=== PATIENT | female | born 1940 | race Hispanic/Latino ===

== ENCOUNTER 2018-12-16 12:45 | Observation (INO) | payer MEDICARE ==
[~2018-12-16] VITALS: Ht 154.9 cm; Wt 66.2 kg
[~2018-12-16 12:45] MED LIST: AMLODIPINE-BEN1 EAC3 PO; COUMADIN5 MG PO; WARFARIN SODIU2.5 MG PO
[2018-12-16] MEDS ORDERED: SODIUM CHLORIDE 0.9% 1000ML 1,000 ML IV STA (13:01)
[2018-12-16] MEDS ORDERED: ONDANSETRON HCL INJ 2MG/ML 2ML 2 MG/ML VIAL IV NR (13:30)
[2018-12-16 13:42] LABS: BILIRUBIN,URINE NEGATIVE (NEGATIVE); CLARITY,URINE CLEAR (CLEAR); COLOR,URINE YELLOW (YELLOW); KETONES,URINE TRACE (NEGATIVE); LEUKOCYTE ESTERASE ,URINE NEGATIVE (NEGATIVE); NITRITE,URINE NEGATIVE (NEGATIVE); PROTEIN,URINE DIPSTICK TRACE (NEGATIVE); URINE UROBILINOGEN 0.2 mg/dL (0.2 - 1)
[2018-12-16 13:58] LABS: BACTERIA,URINE FEW /HPF; EPITHELIAL CELLS,URINE FEW /LPF; RBC,URINE 0-5 /HPF (0-5); WBC,URINE (MAN) 0-5 /HPF (0-5)
--- NOTE | 2018-12-16 14:06 | NUR ---
MEDS GIVEN PER 'S ORDERS. FAMILY AT BEDSIDE
[2018-12-16 14:18] LABS: BASOPHILS # (AUTO) 0.1 (0.0-0.1); BASOPHILS % 0.4 % (0.0-1.0); EOSINOPHILS % 0.1 % (0.0-6.0); HEMATOCRIT 39.4 % (34.2-44.1); HEMOGLOBIN 12.8 g/dL (12.0-16.0); LYMPHOCYTES # (AUTO) 1.5 (1.0-3.2); LYMPHOCYTES % 11.1 % (18.0-39.1); MEAN CORPUSCULAR HEMOGLOBIN 25.7 pg (28-32); MEAN CORPUSCULAR HGB CONC 32.5 g/dL (31-35); MEAN CORPUSCULAR VOLUME 79.1 fL (81-99); MONOCYTES # (AUTO) 1.2 (0.2-0.8); MONOCYTES % 8.8 % (4.4-11.3); NEUTROPHILS # (AUTO) 10.9 (2.1-6.9); PLATELET COUNT 430 x10e3/uL (140-360); RED BLOOD COUNT 4.98 x10e6/uL (3.6-5.1)
[2018-12-16 14:35] LABS: INR 0.96; PROTHROMBIN TIME 13.3 seconds (11.9-14.5)
[2018-12-16 14:36] LABS: PARTIAL THROMBOPLASTIN TIME 29.4 seconds (23.8-35.5)
[2018-12-16 14:43] LABS: ALANINE AMINOTRANSFERASE 12 IU/L (0-55); ALBUMIN 4.1 g/dL (3.5-5.0); ALBUMIN/GLOBULIN RATIO 1.1 (0.8-2.0); ALKALINE PHOSPHATASE 77 IU/L (40-150); ANION GAP 16.5 mmol/L (8-16); BLOOD UREA NITROGEN 13 mg/dL (7-26); BUN/CREATININE RATIO 17 (6-25); CALCIUM 10.2 mg/dL (8.4-10.2); CARBON DIOXIDE 21 mmol/L (22-29); CHLORIDE 105 mmol/L (98-107); CREATINE KINASE 36 IU/L (29-168); CREATININE, SERUM 0.75 mg/dL (0.57-1.11); EST GLOMERULAR FILTRATION RATE > 60 ML/MIN (60-); GLUCOSE 139 mg/dL (74-118); POTASSIUM 3.5 mmol/L (3.5-5.1); SODIUM 139 mmol/L (136-145)
--- NOTE | 2018-12-16 15:00 | Diagnostic Imaging Report ---
EXAM: Abdomen 4 radiographs INDICATION: ^[id number] ^[id number] COMPARISON: None FINDINGS: No lung consolidation. No pleural effusion or pneumothorax. Biapical scarring, right greater than left. 1.2 cm nodular density in the left mid to inferior lung zone. Nonobstructive bowel gas pattern. No signs of pneumoperitoneum. Stool throughout the colon, could represent constipation. No acute osseous abnormality. Pelvic phleboliths. IMPRESSION: 1. Nonobstructive bowel gas pattern. 2. Left mid to lower lung field 1.2 cm nodular density. Recommend correlation with nonurgent chest CT. Signed by: Dr. Lenard Genao MD on 12/16/2018 2:56 PM
[2018-12-16] MEDS ORDERED: SODIUM CHLORIDE 0.9% 1000ML 1,000 ML IV SCH (16:41)
[2018-12-16] MEDS ORDERED: ASPIRIN 81 MG CHEW TAB PO ONE (16:45)
[2018-12-16] MEDS ORDERED: ONDANSETRON HCL INJ 2MG/ML 2ML 2 MG/ML VIAL IV PRN (16:45)
--- OUTSIDE RECORDS SUMMARY | 2018-12-16 16:55 | XMS REPORT ---
Author [facility] Address Unknown Phone Unavailable Care Team Providers Care Exhauster Name Role Phone SUZI MARSHALL Unavailable Unavailable Problems This patient has no known problems. Allergies, Adverse Reactions, Alerts This patient has no known allergies or adverse reactions. Medications This patient has no known medications. Results Test Description Test Time Test Comments Text Results Atomic Results Result Comments ABDOMEN ACUTE SERIES W/PA CXR 2018-12-16 14:54:00 [place] [address] Patient Name: LIZET NAIDU MR #: [id number] : 1940 Age/Sex: 78/F Req #: [id number] Adm Physician: Ordered by: SUZI MARSHALL MD Report #: [id number] Location: ER Room/Bed: Procedure: [id number] DX/ABDOMEN ACUTE SERIES W/PA CXR Exam Date: 12/16/18 Exam Time: 1322 REPORT STATUS: Signed EXAM: Abdomen 4 radiographs INDICATION: [id number] COMPARISON: None FINDINGS: No lung consolidation. No pleural effusion or pneumothorax. Biapical scarring, right greater than left. 1.2 cm nodular density in the left mid to inferior lung zone. Nonobstructive bowel gas pattern. No signs of pneumoperitoneum. Stool throughout the colon, could represent constipation. No acute osseous abnormality. Pelvic phleboliths. IMPRESSION: 1. Nonobstructive bowel gas pattern. 2. Left mid to lower lung field 1.2 cm nodular density. Recommend correlation with nonurgent chest CT. Signed by: Dr. Lenard Genao MD on 12/16/2018 2:56 PM Dictated By: LENARD GENAO MD [id number] Transcribed By: JEFE on 12/16/181455 COPY TO: SUZI MARSHALL MD
--- NOTE | 2018-12-16 17:18 | NUR ---
report called to leona for this patient to go to rm 113
--- NOTE | 2018-12-16 17:55 | NUR ---
RECEIVED PATIENT FROM ER. PATIENT A/O X3, EVEN RESPIRATIONS ON RA. BOWEL SOUNDS ACTIVE, SKIN INTACT, NO EDEMA. RIGHT AC 20 GAUGE IV SL. IV INTACT AND PATENT. NO PAIN OR DISCOMFORT AT THIS TIME. TELEMETRY # 30 ST 104. PATIENT AMBULATES WITH ASSISTANCE. VITAL SIGNS STABLE. FAMILY AT BEDSIDE. NO SIGNS OF DISTRESS. BED LOW, WHEELS LOCKED, SIDE RAILS X2. CALL LIGHT IN REACH WILL CONTINUE TO MONITOR PATIENT.
--- NOTE | 2018-12-16 18:00 | NUR ---
just before moving pt to rm 113.; melissa showed up insisting upon speaking with the ER physician dr. felder. fernando had already been updated re pending admit/p.o.c. attempted to move pt from room and melissa stopped the stretcher and would not let the pt. be moved 'til speaking with the
--- NOTE | 2018-12-16 18:10 | NUR ---
JUST BEFORE MOVING THE PT TO RM 113; THE GRAND-SON INSISTED UPON SPEAKING WITH THE ER PHYSICIAN P THE FAMILY HAD ALREADY BEEN UPDATED ON PENDING ADMIT AND P.O.C. THIS DELAYED MOVING THE PATEINT
[2018-12-16 18:20] VITALS: BP 144/69
[2018-12-16 18:27] VITALS: BP 144/69
[2018-12-16 18:31] VITALS: BP 144/69
--- NOTE | 2018-12-16 19:15 | NUR ---
Report taken from morning rn.pt is lyeing in the bed.family member at bed side.
--- NOTE | 2018-12-16 19:30 | NUR ---
Received CT brain report.notified to and .received verbal order to transfer the pt to [facility].informed to family member.keep monitor the pt.
--- NOTE | 2018-12-16 19:31 | Diagnostic Imaging Report ---
Exam: Head CT without contrast History: Hydration, dizziness Comparison studies: None Technique: Axial images were obtained from the skull base to the vertex. Coronal and sagittal images reconstructed from the axial data. Dose modulation, iterative reconstruction, and/or weight based adjustment of the mA/kV was utilized to reduce the radiation dose to as low as reasonably achievable. Radiation dose: Total DLP: 921 mGy*cm. Estimated effective dose: DLP x 0.015 Intravenous contrast: None Findings: Scalp: No abnormalities. Bones: No fractures, blastic or lytic lesions. Brain sulci: Mildly prominent. Ventricles: Normal in size and configuration. No hydrocephalus. Extra-axial spaces: Subtle increased hyperdensity along the right sylvian fissure compatible with small subarachnoid hemorrhage. Parenchyma: Hyperdense 1.7 cm intraparenchymal hemorrhage within the right precuneus gyrus with mild surrounding edema without significant mass effect. Additionally, there is increased flow velocities of miller-white differentiation in the adjacent right superior parietal lobule with associated focal effacement compatible with recent infarct. Sellar/suprasellar region: No abnormalities. Craniocervical junction: Patent foramen magnum. No Chiari one malformation. Additional findings: Increased density in the superior sagittal sinus as well as increased density in adjacent right cortical vein. Atherosclerotic calcifications in the carotid siphons an in the right intradural vertebral artery. IMPRESSION: 1. Acute 1.7 cm right posterior paramedian parietal parenchymal hemorrhage with mild surrounding edema with adjacent recent nonhemorrhagic insult in the right superior parietal lobule and small acute right sylvian fissure subarachnoid hemorrhage. Increased density in the superior sagittal sinus and within a superior cortical vein is concerning for sinus/venous thrombosis. Compilation of findings may reflect venous infarct and venous hemorrhage secondary to venous thrombosis. 2. Mass effect remains local. No midline shift/ herniation Findings discussed with Dr. Toledo at 7:04 PM on 12/16/2018. Recommend CT Venogram to initially further evaluate. Signed by: Dr. Pernell Donovan M.D. on 12/16/2018 7:28 PM
--- NOTE | 2018-12-16 19:33 | NUR ---
received call CT result was positive on pt. and indicated a cranial bleed, Dr. Guevara and Dr. Oliveros had been notified and orders for transfer to a higher level of care informed grandson who has a medical background, wishes to have pt. transfer to [facility]
--- NOTE | 2018-12-16 19:50 | NUR ---
transferred to [facility] initiated as requested by family for a higher level of care, everything faxed as requested by there transferred center
[2018-12-16 20:00] VITALS: BP 127/60
--- NOTE | 2018-12-16 20:22 | NUR ---
family has changed their minds on using [facility] and request transfer to [facility]. [facility] called but was denied because of no Neuro ICU beds, family informed
--- NOTE | 2018-12-16 20:30 | NUR ---
IS IN THE UNIT TO SEE THE PATIENT.
--- NOTE | 2018-12-16 20:31 | NUR ---
Dr. Guevara on unit assessing pt., family has stated that their second choice would be to send the pt. to [facility], Dr. Guevara agrees at 2033 transfer was initiated to [facility], pt. is alert and stable , agrees to this transfer; everything faxed to [facility] as requested
--- NOTE | 2018-12-16 20:56 | Diagnostic Imaging Report ---
History:Concern for venous venous thrombosis. Comparison studies:Head CT from the same date (12/16/2018 at 18:51 hours). Technique: Axial images were obtained from the skull base to the vertex in the arterial and venous phase following the administration of IV contrast. Multiplanar MIP reformatted images were reconstructed from the axial source data. Dose modulation, iterative reconstruction, and/or weight based adjustment of the mA/kV was utilized to reduce the radiation dose to as low as reasonably achievable. Intravenous contrast: 100 cc of Omnipaque 300. Findings: Intracranial CTA: No aneurysm or arterial vascular malformation identified. Anterior circulation: Internal carotid arteries: Patent bilaterally with calcified plaque throughout the cavernous, paraophthalmic and supraclinoid segments without significant stenosis. Middle cerebral arteries: Patent, no proximal branch occlusion or stenosis. Anterior cerebral arteries: Patent, no proximal branch occlusion or stenosis. Posterior circulation: Vertebral arteries: Patent, no abnormalities. Hypoplastic left vertebral artery essentially terminates as a PICA branch. Basilar artery: Patent, no abnormalities. Posterior rib arteries: Patent, no proximal branch occlusion or stenosis. Anatomical variants: Anterior communicating artery :Visualized. Posterior communicating arteries: Hypoplastic on the left. Not well visualized on the right. Vertebral arteries: Right is dominant. Hypoplastic left vertebral artery terminates as a PICA branch. Intracranial CT Venogram: Superficial system: Superior sagittal sinus: Diffuse filling defect consistent with thrombus. Transverse sinuses: Proximal right transverse sinus not visualized. Distal right transverse sinus is patent with small incidental arachnoid granulation. A prominent right occipital sinus is however patent. The left transverse sinus is patent. Sigmoid sinuses: Patent, no thrombus bilaterally. Proximal jugular veins: Patent, no thrombus on the left. Patent on the right with subtle linear filling defect which may be artifactual or possibly represent small thrombus. The right jugular vein is dominant. Deep system: Internal cerebral veins: Patent. Straight sinus: Patent. Vein of Lito: Patent. IMPRESSION: CT angiogram: 1. No aneurysm or arterial vascular malformation identified. 2. No major arterial branch occlusion or stenosis. 3. Atherosclerosis in the carotid siphons without significant stenosis. CT Venogram: 1. Acute superior sagittal dural venous sinus thrombosis. 2. Proximal right transverse sinus occluded or, congenitally atretic or severely hypoplastic in the context of a prominent patent right occipital sinus. 3. Subtle linear hypodensity in the right jugular bulb and proximal jugular vein may be artifactual or less likely small nonocclusive thrombus. Findings discussed with Dr. Gomez at 8:42 PM on 12/16/2018. Signed by: Dr. Pernell Donovan M.D. on 12/16/2018 8:53 PM
[2018-12-16 21:00] VITALS: BP 127/60
--- NOTE | 2018-12-16 21:00 | NUR ---
Assessment done.aaox3.no pain voiced.voided in bed side commode.iv to right ac#20 is patent.tele #[address]bruises noted on buttocks.bed locked and in lowest position.phone and call light within reach.instructed to call for assistance as needed.
--- NOTE | 2018-12-16 21:15 | NUR ---
Dr. Guevara speaking with stroke team physician at [facility] at this time
--- NOTE | 2018-12-16 21:52 | NUR ---
spoke with Harmony in transfer center at [facility], stated waiting on business office approval, states EMTALA doesn't apply because pt. is not in ER but an inpt. , after business office verifies then hospital approval will have to be obtained, this is explained to the family
--- NOTE | 2018-12-16 22:08 | NUR ---
approval for transfer obtained from [facility], pt. is to travel per life flight, pt. remains stable with multiple family members by bedside
--- NOTE | 2018-12-16 22:09 | History and Physical ---
Covering for Dr. Bryan. HISTORY OF PRESENTING ILLNESS: Ms. Fang Saleem is a 78-year-old female with a history of recent diagnosis of adenocarcinoma done through a colonoscopy. The patient was found to have adenocarcinoma and also was found to have an H pylori infection. The patient was started on H pylori regimen for 10 days, but this morning the patient started to have symptoms of weakness more on the left side, with some twitches on the left arms. This resulted in the patient coming to the emergency room. In the emergency room, the patient was treated for dizziness and dehydration. The patient's brain CT done in the ER shows acute 1.7 cm right paramedian parietal parenchymal hemorrhage with mild surrounding edema with adjacent recent nonhemorrhagic insult. The patient's compilation of findings may reflect venous and bronchial venous hemorrhage, mass effect remains local and no midline shift was noted at that time. The patient's abdominal series at this time also showed nonobstructive pattern. PAST MEDICAL HISTORY: History of anemia, history of hypertension, history of colon cancer recently diagnosed, history of DVT in the past, who was being treated by warfarin. Currently, the patient is not taking any warfarin. The patient's additional history includes hypertension, hyperlipidemia, and again history of DVT. PAST SURGICAL HISTORY: History of hysterectomy, cholecystectomy, and also spinal infection in 2015. The patient had hysterectomy in 2014 and cholecystectomy was in 1999. SOCIAL HISTORY: No EtOH, no IV drug abuse, and no history of smoking either. REVIEW OF SYSTEMS: Negative for chest pain. No shortness of breath. No nausea. No vomiting. Positive for some abdominal pain. Positive for some extremity weakness. No diplopia. No blurry vision. No headaches at this time. PHYSICAL EXAMINATION: VITAL SIGNS: The patient's vital signs on arrival; the patient's temperature was 97.7, pulse was tachycardic at 105, respirations of 18, blood pressure is 144/69, came down to 127/60. HEENT: Normocephalic, atraumatic. Pupils are reactive to light and accommodation. CVS: S1 and S2, tachy. neuro: left sided weakness, hyper reflexic on left side. gait not assessed. ABDOMEN: Slightly tender, nondistended. Positive for bowel sounds. EXTREMITIES: No clubbing, no cyanosis, and/or no edema. LABORATORY VALUES: Initial white count was 13,000, hemoglobin of 12.8, hematocrit of 39.4, and platelet count was 430. Chemistries show sodium of 139, potassium of 3.5, BUN of 13, creatinine 0.75. Coags were normal. MICROBIOLOGY: All cultures are pending. IMAGING STUDIES: As mentioned above. 1. Brain CT showed an acute 1.7 cm paramedian parietal parenchymal hemorrhage. no mid line shift 2. Abdominal series shows nonobstructive bowel pattern and also left [id number] lung field 1.2 cm nodular density. ASSESSMENT: Brain bleed. CVA PLAN: To transfer the patient to [facility] via [facility]. The patient will need additional neuroimaging and also Neurosurgery back up at this point of time, which hospital does not carry. The patient's family has been educated and has agreed to the [facility] and being transferred out to [facility]. Further recommendation per clinical course. We will continue to monitor the patient. Dr. Oliveros, who is a neurologist is aware of the CT and is in agreement to transfer to [facility]. addendum: discussed case with stroke team at [facility], additional neuro imaging revealed thrombotic event. MD KEVEN Peacock/RANDYL /[id number]
--- NOTE | 2018-12-16 22:48 | NUR ---
REPORT GIVEN TO [facility]TER[facility] INSTALLER RIO.
--- NOTE | 2018-12-16 22:50 | NUR ---
D/C TELE AND RETURNED TO RESPECTIVE DEPT.TRANSFERRED TO [facility] BY A [facility] URI STABLE CONDITION.
[2018-12-16 23:03] LABS: CREATINE KINASE 38 IU/L (29-168)
[2018-12-17] MEDS ORDERED: IOPAMIDOL 370 MG/ML 200 ML INFUS..BTL INJ ONE (03:28)
[2018-12-17] MEDS ORDERED: SODIUM CHLORIDE 0.9% 100 ML 100 ML ONE (03:28)
[2019-01-17] MEDS ORDERED: OMEPRAZOLE40 MG PO (13:07)
[2019-01-17] MEDS ORDERED: VITAMIN D31000 UNI1 PO (13:07)
[2019-01-17] MEDS ORDERED: AMLODIPINE-BEN1 EACH PO (13:07)
[2019-01-17] MEDS ORDERED: LEVETIRACETAM500 MG PO (13:07)
== END 2018-12-16 22:50 | disposition short-term general hospital (02) ==
LOC: ER 12:45 → ERHOLD 16:52 → MED/SURG 17:55
PROVIDERS: ADMIT Family Medicine; ATTEND Family Medicine
DX: I62.9 Nontraumatic intracranial hemorrhage, unspecified (principal); E86.0 Dehydration; C18.9 Malignant neoplasm of colon, unspecified; Z86.718 Personal history of other venous thrombosis and embolism; Z90.49 Acquired absence of other specified parts of digestive tract; Z90.710 Acquired absence of both cervix and uterus
CPT/HCPCS: 36415; 70450; 70496; 74022; 80053; 81001; 82550; 82553; 83605; 83880; 84484; 85025; 85610; 85730; 87040; 87086; 93005; 99284; G0378; J2405; J7030

== ENCOUNTER 2019-01-18 10:18 | Inpatient (IN) | payer MEDICARE ==
[2019-01-17 14:19] LABS: BASOPHILS % 0.5 % (0.0-1.0); EOSINOPHILS # (AUTO) 0.1 (0.0-0.4); EOSINOPHILS % 1.5 % (0.0-6.0); HEMATOCRIT 33.2 % (34.2-44.1); HEMOGLOBIN 10.2 g/dL (12.0-16.0); LYMPHOCYTES # (AUTO) 1.7 (1.0-3.2); LYMPHOCYTES % 19.9 % (18.0-39.1); MEAN CORPUSCULAR HEMOGLOBIN 23.8 pg (28-32); MEAN CORPUSCULAR HGB CONC 30.7 g/dL (31-35); MEAN CORPUSCULAR VOLUME 77.6 fL (81-99); MONOCYTES # (AUTO) 0.7 (0.2-0.8); MONOCYTES % 7.6 % (4.4-11.3); NEUTROPHILS % 70.2 % (38.7-80.0); PLATELET COUNT 438 x10e3/uL (140-360); RED BLOOD COUNT 4.28 x10e6/uL (3.6-5.1); RED CELL DISTRIBUTION WIDTH 18.3 % (11.7-14.4)
--- NOTE | 2019-01-17 14:48 | Diagnostic Imaging Report ---
EXAMINATION: CHEST 2 VIEWS INDICATION: Pre-operative COMPARISON: Chest radiograph of 12/16/2018 FINDINGS: LINES/TUBES:None LUNGS:The lungs are mildly hyperinflated. Biapical pleural parenchymal thickening/scarring. Again seen is a 1.6 cm lingular nodule. 1.3 cm nodular opacity in the right mid to upper lung zone overlying the right scapula. PLEURA:No pleural effusion or pneumothorax. MEDIASTINUM:The cardiomediastinal silhouette appears unchanged in size and shape. Atherosclerotic calcifications of the thoracic aorta. BONES/SOFT TISSUES:No acute osseous injury. Degenerative changes of the visualized spine. ABDOMEN:No free air under the diaphragm. IMPRESSION: 1.6 cm left lung nodule. 1.3 cm right lung nodule. Further evaluation is recommended with dedicated chest CT. No focal pneumonia or pulmonary edema. Signed by: Mei Rubio MD on 01/17/2019 2:44 PM
[~2019-01-18] VITALS: Ht 154.9 cm; Wt 59.9 kg
[~2019-01-18 10:18] MED LIST changes: +AMLODIPINE-BEN1 EACH PO; +LEVETIRACETAM500 MG PO; +OMEPRAZOLE40 MG PO; +VITAMIN D31000 UNI1 PO
[2019-01-18] MEDS ORDERED: CEFOXITIN 2GM/ D5W 50ML 50 ML IV ONE (10:31)
[2019-01-18 12:35] LABS: INR 1.01; PROTHROMBIN TIME 13.8 seconds (11.9-14.5)
[2019-01-18 12:36] LABS: PARTIAL THROMBOPLASTIN TIME 21.8 seconds (23.8-35.5)
[2019-01-18] MEDS ORDERED: BUPIVACAINE HCL 0.5% INJ 30 ML VIAL INJ ONE (12:45)
[2019-01-18] MEDS ORDERED: NALOXONE HCL INJ 0.4 MG/ML AMP IV PRN (13:45)
[2019-01-18] MEDS ORDERED: KETOROLAC TROMETHAMINE 30 MG/ML VIAL IV PRN (13:45)
[2019-01-18] MEDS ORDERED: MORPHINE SULFATE 1 MG/ML 30ML PCA IV PRN (13:45)
[2019-01-18] MEDS ORDERED: DIPHENHYDRAMINE HCL 25 MG CAP PO PRN (13:45)
[2019-01-18] MEDS ORDERED: ONDANSETRON HCL INJ 2MG/ML 2ML 2 MG/ML VIAL IV PRN (13:45)
[2019-01-18] MEDS ORDERED: ACETAMINOPHEN 1000 MG/100 ML IV PRN (13:45)
--- NOTE | 2019-01-18 14:17 | Operative Report ---
DATE OF PROCEDURE: 01/18/2019 SURGEON: Pernell Perry MD PREOPERATIVE DIAGNOSIS: Carcinoma of the right colon. POSTOPERATIVE DIAGNOSIS: Carcinoma of the right colon. PROCEDURE: Laparoscopic-assisted right hemicolectomy. GUEST ATTENDANT: None. ANESTHESIA: General. INDICATIONS AND FINDINGS: The patient is a 78-year-old female, who was found have a mass in the right colon. Biopsy revealed adenocarcinoma. At Surgery, there was a mass within the right colon with the cecum, there was no mass in the liver, there were no enlarged lymph nodes in the mesentery, there were some adhesions in the midline involving omentum. TECHNIQUE: After adequate general endotracheal anesthesia, the patient is in supine position, the abdomen was prepped and draped in sterile fashion with ChloraPrep solution. Skin in the umbilicus infiltrated with 0.5% Marcaine. Incision was made in the umbilicus, abdominal wall was elevated and Veress needle was introduced. Pneumoperitoneum was then created. A 10 mm trocar and cannula were then passed through this wound. Laparoscopic camera was introduced. Initial laparoscopy, adhesions involving omentum. A 5 mm trocar and cannula were placed in the epigastrium. A 5 mm laparoscopic camera was then placed through this wound and the umbilical trocar was repositioned, so that was away from the adhesions. A 5 mm trocar and cannula was also placed in right lower quadrant under direct vision. The cecum was then mobilized by dividing peritoneal attachments. There was mobilized all way to the hepatic flexure. The hepatic flexure also was mobilized. Omentum was dissected free from the right transverse colon, this colon was mobilized off the duodenum and the cecum mobilized to the terminal ileum. Once the mobilization was complete, transverse incision was made in the right side of the abdomen. Peritoneal cavity was entered. The colon was delivered up into the wound. There was a mass palpable in the cecum, which had also been previously tattooed, this colon was resected. The transverse colon to the right of the middle colic artery was divided with a LUCIANO stapler. The terminal ileum about 5 cm proximal cecum was divided with a LUCIANO stapler. Mesentery was then divided with LigaSure device. The specimen removed. Anastomosis was made between the terminal ileum and the transverse colon using a LUCIANO stapler and TL60 stapler. Mesentery defect was closed with 3-0 Vicryl. The wound was irrigated with saline. Inspected for hemostasis, which was seen to be adequate, it was irrigated further with saline. All fluid aspirated, inspected for hemostasis, which was seen to be adequate. The wound was then closed. The fascia was closed with a running suture of #1 PDS. Fascia in the umbilical was closed with 0 Vicryl. Skin to all wounds closed with jonathan. Sterile dressings applied to each wound. The patient tolerated the procedure well. Estimated blood loss was 50 mL. There were no complications. All counts were correct and the patient was taken to the recovery room in satisfactory condition. MD MARCELINA Frey/LES /[id number]
[2019-01-18] MEDS ORDERED: FENTANYL CITRATE/PF 100MCG/2 ML INJ ONE (15:04)
--- NOTE | 2019-01-18 17:02 | NUR ---
RECEIVED REPORT FROM EUGENIE IN PACU
[2019-01-18 17:25] VITALS: BP 114/52
--- NOTE | 2019-01-18 17:25 | NUR ---
PT ARRIVED TO FLOOR AA0X3 PT IS ON LOGGING SUPERVISOR PUMP WITH MORPHINE , VERIFIED PUMP WITH NURSE AT BEDSIDE PT IS ON LR TO THE RIGHT AC 18 , SITE IS CLEAN AND DRY ABD SITE ARE CLEAN AND DRY (DRESSING CLEAN AND DRY X3) SEDS CONNECTED PT IS AWARE OF NPO STATUS FOR NOW WILL CONTINUE TO MONITOR PT CLOSELY SIDE RAILSX2, BED WHEELS LOCKED , CALL LIGHT IS WITHIN EASY REACH INSTRUCTED TO CALL FOR ASSISTANCE IF NEEDED FAM IS AT BEDSIDE
[2019-01-18] MEDS ORDERED: ACETAMINOPHEN 1000 MG/100 ML 100 ML IV PRN (17:30)
[2019-01-18] MEDS: DEXTROSE 5%/LACTATED RINGERS 1,000 ML IV SCH (17:43)
[2019-01-18 17:57] VITALS: BP 118/56
[2019-01-18] MEDS: CEFOXITIN 1GM/ D5W 50ML 50 ML IV SCH (17:58)
[2019-01-18] MEDS ORDERED: SEVOFLURANE INHAL SOLN 250 ML PEN BTL ONE (18:05)
[2019-01-18] MEDS ORDERED: LIDOCAINE HCL 2% LOCAL INJ 5 ML SDV VIAL INJ ONE (18:05)
[2019-01-18] MEDS ORDERED: DEXAMETHASONE SOD PHOS INJ 4 MG/ML VIAL ONE (18:05)
[2019-01-18] MEDS ORDERED: ONDANSETRON HCL INJ 2MG/ML 2ML 2 MG/ML VIAL ONE (18:05)
[2019-01-18] MEDS ORDERED: NEOSTIGMINE 5 MG/5ML SYR ONE (18:05)
[2019-01-18] MEDS ORDERED: ROCURONIUM BROMIDE 10 MG/ML 5ML VIAL ONE (18:05)
[2019-01-18] MEDS ORDERED: PROPOFOL IV EMULSION 10 MG/ML 20 ML VIAL ONE (18:05)
[2019-01-18] MEDS ORDERED: GLYCOPYRROLATE INJ 1MG/ 5 ML SYR ONE (18:05)
--- NOTE | 2019-01-18 19:19 | NUR ---
received patient aaox3, resting in bed. resp even and unlabored. e commerce architect button within reach. family member at bedside. levy cath to gravity. at this time no needs voiced, will continue to monitor.
[2019-01-18 20:26] VITALS: BP 118/56
[2019-01-18 21:00] VITALS: BP 118/56
[2019-01-18] MEDS: ENOXAPARIN SOD INJ 40 MG/0.4 ML SYR SC SCH (21:17)
[2019-01-19] VITALS (8 sets, daily range): BP systolic 108–144; BP diastolic 53–65
[2019-01-19] MEDS: CEFOXITIN 1GM/ D5W 50ML 50 ML IV SCH ×3 (00:44→12:05)
[2019-01-19] MEDS: DEXTROSE 5%/LACTATED RINGERS 1,000 ML IV SCH ×2 (02:19→11:26)
[2019-01-19] MEDS ORDERED: CHLORASEPTIC SPRAY 177 ML BTL MM PRN (06:00)
[2019-01-19 06:07] LABS: BASOPHILS % 0.2 % (0.0-1.0); HEMATOCRIT 28.3 % (34.2-44.1); HEMOGLOBIN 8.8 g/dL (12.0-16.0); LYMPHOCYTES % 11.3 % (18.0-39.1); MEAN CORPUSCULAR HEMOGLOBIN 23.8 pg (28-32); MEAN CORPUSCULAR HGB CONC 31.1 g/dL (31-35); MEAN CORPUSCULAR VOLUME 76.5 fL (81-99); MONOCYTES % 11.3 % (4.4-11.3); NEUTROPHILS # (AUTO) 6.9 (2.1-6.9); NEUTROPHILS % 76.8 % (38.7-80.0); PLATELET COUNT 404 x10e3/uL (140-360); RED CELL DISTRIBUTION WIDTH 17.5 % (11.7-14.4)
--- NOTE | 2019-01-19 06:59 | NUR ---
received report from planer offbearer RN, pt resting in bed, family member at bedside, no distress noted, will continue to monitor
--- NOTE | 2019-01-19 07:02 | Consultation ---
DATE OF CONSULTATION: REASON FOR CONSULTATION: Postop medical management. HISTORY OF PRESENT ILLNESS: The patient is a 78-year-old lady with a recent diagnosis of adenocarcinoma of the colon, status post right hemicolectomy. She is doing fairly well postoperatively with good pain control medical management. PAST MEDICAL HISTORY: Significant for hypertension, reflux disease, recent CVA, and history of blood clot. MEDICATIONS: See MAR. ALLERGIES: SEE MAR. SOCIAL HISTORY: Nonsmoker. Nondrinker. Lives at home with her family. FAMILY HISTORY: Hypertension. PHYSICAL EXAMINATION: VITAL SIGNS: Temperature 98.6, pulse 74, blood pressure 136/76, and sats 98%. GENERAL: No apparent distress, lying in bed. NECK: Supple. CARDIOVASCULAR: Regular rate and rhythm. LUNGS: Clear to auscultation bilaterally. ABDOMEN: Soft, nondistended bowel sounds. EXTREMITIES: No clubbing or cyanosis. NEUROLOGIC: Nonfocal. Moves all extremities x4. ASSESSMENT AND PLAN: 1. Status post hemicolectomy. Continue with postoperative care. 2. Colon cancer with adenocarcinoma. We will consult Dr. Alba. 3. History of deep venous thrombosis and recent cerebrovascular accident. We will continue with the Lovenox. 4. Anemia. Continue to monitor. 5. Reflux disease. Continue with her proton pump inhibitor. 6. Chest x-ray shows a pulmonary nodule, so we will do a CT scan and further reassess. Please see hospital chart for full details. MD JILLIAN Denise/LES /[id number]
[2019-01-19 07:03] LABS: ANION GAP 10.6 mmol/L (8-16); BLOOD UREA NITROGEN 5 mg/dL (7-26); BUN/CREATININE RATIO 7 (6-25); CALCIUM 9.3 mg/dL (8.4-10.2); CARBON DIOXIDE 27 mmol/L (22-29); CHLORIDE 107 mmol/L (98-107); CREATININE, SERUM 0.68 mg/dL (0.57-1.11); EST GLOMERULAR FILTRATION RATE > 60 ML/MIN (60-); GLUCOSE 180 mg/dL (74-118); POTASSIUM 3.6 mmol/L (3.5-5.1); SODIUM 141 mmol/L (136-145)
--- NOTE | 2019-01-19 09:41 | Diagnostic Imaging Report ---
Exam: CT chest Clinical history: Pulmonary nodules next Comparison:: Chest radiograph 01/17/2019 DOSE REDUCTION: The exams was performed according to the departmental dose-optimization program which includes automated exposure control, adjustment of the mA and/or kV according to patient size and/or use of iterative reconstruction technique. Technique: Helical images of the chest were obtained after IV contrast administration Findings: Multiple nodules are noted bilaterally. Specifically, series 3 image 25, a 1.5 x 1.3 cm particularly the mass is seen in the right upper lobe extending to the pleural surface. A 1.2 x 0.9 cm mass is also seen in the right upper lobe on image 42. A 1.9 x 1.6 cm nodule is noted extending to the medial pleural surface image 80. A 1.5 x 1.1 cm spiculated nodule is seen in the lingula on image 59. And a 7 mm nodule abutting the oblique fissure is seen in the left lower lobe on image 42. There is no evidence of mediastinal or hilar lymphadenopathy. The tracheobronchial tree is clear. The cardiac size is within normal limits. The great vessels are normal in caliber and orientation. The visualized upper abdominal solid organs are unremarkable. A small hiatal hernia is visualized. No suspicious osteoblastic or lytic lesions are noted Impression: 1. Multiple bilateral pulmonary nodules suspicious for neoplasm. 2. Small hiatal hernia. Signed by: Dr. Isaiah Adams MD on 01/19/2019 9:38 AM
[2019-01-19] MEDS ORDERED: SODIUM CHLORIDE 0.9% 50ML 50 ML ONE (10:20)
[2019-01-19] MEDS ORDERED: IOPAMIDOL 370 MG/ML 200 ML INFUS..BTL INJ ONE (10:20)
[2019-01-19] MEDS: ENOXAPARIN SOD INJ 40 MG/0.4 ML SYR SC SCH ×2 (10:21→21:43)
--- NOTE | 2019-01-19 17:56 | NUR ---
pt's levy d/c'd, tip intact, pt due to void within 6-8 hours (0000 to 0200).
--- NOTE | 2019-01-19 19:13 | NUR ---
report given to date night sitter RN, pt resting in bed, awake, alert, no distress noted, call light within reach, family at bedside, in stable condition
[2019-01-20] VITALS (8 sets, daily range): BP systolic 109–130; BP diastolic 51–61
[2019-01-20] MEDS: DEXTROSE 5%/LACTATED RINGERS 1,000 ML IV SCH ×3 (01:37→16:12)
[2019-01-20] MEDS ORDERED: LEVETIRACETAM 500 MG TAB PO SCH (03:30)
[2019-01-20 06:09] LABS: BASOPHILS % 0.4 % (0.0-1.0); EOSINOPHILS # (AUTO) 0.1 (0.0-0.4); HEMATOCRIT 29.2 % (34.2-44.1); HEMOGLOBIN 9.1 g/dL (12.0-16.0); LYMPHOCYTES # (AUTO) 1.4 (1.0-3.2); LYMPHOCYTES % 15.3 % (18.0-39.1); MEAN CORPUSCULAR HEMOGLOBIN 23.8 pg (28-32); MEAN CORPUSCULAR HGB CONC 31.2 g/dL (31-35); MEAN CORPUSCULAR VOLUME 76.2 fL (81-99); MONOCYTES # (AUTO) 0.8 (0.2-0.8); MONOCYTES % 9.3 % (4.4-11.3); NEUTROPHILS # (AUTO) 6.5 (2.1-6.9); NEUTROPHILS % 73.4 % (38.7-80.0); PLATELET COUNT 406 x10e3/uL (140-360); RED BLOOD COUNT 3.83 x10e6/uL (3.6-5.1); RED CELL DISTRIBUTION WIDTH 17.4 % (11.7-14.4)
[2019-01-20 06:20] LABS: BLOOD UREA NITROGEN < 5 mg/dL (7-26); CALCIUM 8.8 mg/dL (8.4-10.2); CARBON DIOXIDE 31 mmol/L (22-29); CHLORIDE 103 mmol/L (98-107); CREATININE, SERUM 0.59 mg/dL (0.57-1.11); EST GLOMERULAR FILTRATION RATE > 60 ML/MIN (60-); GLUCOSE 118 mg/dL (74-118); SODIUM 142 mmol/L (136-145)
[2019-01-20 06:21] LABS: BUN/CREATININE RATIO 8 (6-25)
--- NOTE | 2019-01-20 06:42 | NUR ---
lab asked if 0000 cbc could be cancelled, no orders in the computer for 0000 labs.
--- NOTE | 2019-01-20 07:01 | NUR ---
received report from shift supervisor film processing RN, pt resting in bed, awake, alert, no distress noted, call light within reach, will continue to monitor
[2019-01-20] MEDS ORDERED: HYDROCODONE/APAP 5MG-325MG TAB PO PRN (07:15)
[2019-01-20] MEDS: PANTOPRAZOLE SOD 40 MG TABEC PO SCH (08:31)
[2019-01-20] MEDS: ENOXAPARIN SOD INJ 40 MG/0.4 ML SYR SC SCH ×2 (08:31→21:45)
[2019-01-20] MEDS: LEVETIRACETAM 500 MG TAB PO SCH ×2 (08:31→21:45)
[2019-01-20] MEDS: CHOLECALCIFEROL 1,000 UNIT TAB PO SCH (08:31)
[2019-01-20] MEDS: BENAZEPRIL HCL 10 MG TAB PO SCH (08:31)
[2019-01-20] MEDS: AMLODIPINE BESYLATE 5 MG TAB PO SCH (08:31)
[2019-01-20] MEDS: HYDROCODONE/APAP 5MG-325MG TAB PO PRN (08:32)
--- NOTE | 2019-01-20 08:48 | NUR ---
RETAIL ASSISTANT STORE MANAGER d/c'd as per order.
[2019-01-20] MEDS ORDERED: AMLODIPINE BESYLATE 5 MG TAB PO SCH (09:00)
[2019-01-20] MEDS ORDERED: BENAZEPRIL HCL 10 MG TAB PO SCH (09:00)
[2019-01-20] MEDS ORDERED: AMLODIPINE BESYLATE PO SCH (09:00)
[2019-01-20] MEDS ORDERED: BENAZEPRIL PO SCH (09:00)
[2019-01-20] MEDS ORDERED: [UNRECOGNIZED DRUG - OTHER] PO SCH (09:00)
--- NOTE | 2019-01-20 18:30 | Consultation ---
DATE OF CONSULTATION: Pulmonary Consultation REASON FOR THE CONSULT: Lung nodule. CHIEF COMPLAINT: The patient was admitted by Dr. Perry for adenocarcinoma of the colon, status post right hemicolectomy. HISTORY OF PRESENT ILLNESS: A 78-year-old female, admitted with adenocarcinoma of the colon, status post right hemicolectomy. The patient is doing very well. The patient underwent a CT of the chest because of abnormal chest x-ray, which was showing two large nodules. I have reviewed the images. It is in the right upper lobe and the lower lobe. She is a lifelong nonsmoker. Denies any chest pain, shortness of breath, hemoptysis. REVIEW OF SYSTEMS: GENERAL: Denies any fever or chills. HEAD: Denies any head trauma. ENT: Denies any earache. CVS: Denies any chest pain. RESPIRATORY: Denies any shortness of breath. GI: Denies any nausea, vomiting. The rest of the review of systems are negative except as in HPI. PAST MEDICAL HISTORY: Hypertension, recent CVA, and also had a DVT and the patient is on Coumadin. PAST SURGICAL HISTORY: Hysterectomy, cholecystectomy, recent colectomy. FAMILY AND SOCIAL HISTORY: Lifelong nonsmoker. No alcohol use. PHYSICAL EXAMINATION: VITAL SIGNS: Temperature 98.3, pulse of 83, blood pressure 129/60, respiratory rate of 18, O2 saturation 95%. HEENT: Head is atraumatic, normocephalic. NECK: Supple. CHEST: Clear to auscultation bilaterally. No wheezing. HEART: S1, S2 audible. ABDOMEN: Soft, nontender. EXTREMITIES: No pedal edema. NEUROLOGIC: Awake, alert. No focal neurologic deficits. LABORATORY DATA: White count of 8000, hemoglobin 9.1, platelets 406. Chemistries within normal limits. ASSESSMENT/PLAN: Ms. Fang Saleem is a 78-year-old female. She was admitted for colon mass and the patient underwent laparoscopic right hemicolectomy. Postoperatively, the patient had a chest x-ray, which was abnormal, subsequently led to a CT chest, which is showing two large lung masses. PLAN: I had an extensive discussion with the patient's daughter at bedside and also reviewed the CT films with the patient's family member and also spoke to the other family member over the phone and they are in agreement to do a CT-guided biopsy. These lung nodules are highly suspicious for malignancy, given her history of colon cancer, location, location size, and edges of the nodule. I will order a CT-guided biopsy of the lung nodules. Coumadin is already on hold and the patient is on subcu Lovenox. This was also discussed with Dr. Bryan. MD EDWARDO Lopez/LES /[id number]
--- NOTE | 2019-01-20 19:10 | NUR ---
report given to oncoming inside technical sales representative RN, pt awake, alert, ambulating to bedside comode, no distress noted, call light within reach, in stable condition
[2019-01-21] VITALS (8 sets, daily range): BP systolic 110–132; BP diastolic 53–60
[2019-01-21] MEDS: DEXTROSE 5%/LACTATED RINGERS 1,000 ML IV SCH (04:32)
[2019-01-21] MEDS ORDERED: SODIUM CHLORIDE FLUSH 10 ML SYR INJ PRN (06:45)
--- NOTE | 2019-01-21 07:00 | NUR ---
bedside shift report received pt in stable condition, denies pain at this time, ivf infusing to r fa 20g no ss of infiltration noted, no other co voiced call light in reach will continue to monitor
[2019-01-21] MEDS ORDERED: POTASSIUM CHLORIDE 20 MEQ TAB CR PO STA (07:08)
[2019-01-21] MEDS: CHOLECALCIFEROL 1,000 UNIT TAB PO SCH (08:25)
[2019-01-21] MEDS: AMLODIPINE BESYLATE 5 MG TAB PO SCH (08:25)
[2019-01-21] MEDS: BENAZEPRIL HCL 10 MG TAB PO SCH (08:25)
[2019-01-21] MEDS: LEVETIRACETAM 500 MG TAB PO SCH ×2 (08:25→20:22)
[2019-01-21] MEDS: PANTOPRAZOLE SOD 40 MG TABEC PO SCH (08:25)
[2019-01-22] VITALS (9 sets, daily range): BP systolic 110–120; BP diastolic 53–58
[2019-01-22 06:10] LABS: BASOPHILS % 0.6 % (0.0-1.0); EOSINOPHILS # (AUTO) 0.1 (0.0-0.4); EOSINOPHILS % 1.8 % (0.0-6.0); HEMATOCRIT 29.4 % (34.2-44.1); HEMOGLOBIN 9.1 g/dL (12.0-16.0); LYMPHOCYTES # (AUTO) 1.5 (1.0-3.2); LYMPHOCYTES % 20.8 % (18.0-39.1); MEAN CORPUSCULAR HEMOGLOBIN 23.5 pg (28-32); MONOCYTES # (AUTO) 0.7 (0.2-0.8); MONOCYTES % 9.7 % (4.4-11.3); NEUTROPHILS # (AUTO) 4.8 (2.1-6.9); NEUTROPHILS % 66.8 % (38.7-80.0); PLATELET COUNT 371 x10e3/uL (140-360); RED BLOOD COUNT 3.87 x10e6/uL (3.6-5.1); RED CELL DISTRIBUTION WIDTH 17.7 % (11.7-14.4)
[2019-01-22 06:30] LABS: ALANINE AMINOTRANSFERASE 11 IU/L (0-55); ALBUMIN 2.7 g/dL (3.5-5.0); ALBUMIN/GLOBULIN RATIO 0.9 (0.8-2.0); ALKALINE PHOSPHATASE 53 IU/L (40-150); ANION GAP 9.5 mmol/L (8-16); BLOOD UREA NITROGEN 5 mg/dL (7-26); BUN/CREATININE RATIO 9 (6-25); CALCIUM 9.3 mg/dL (8.4-10.2); CARBON DIOXIDE 27 mmol/L (22-29); CHLORIDE 106 mmol/L (98-107); CREATININE, SERUM 0.58 mg/dL (0.57-1.11); EST GLOMERULAR FILTRATION RATE > 60 ML/MIN (60-); GLUCOSE 94 mg/dL (74-118); POTASSIUM 3.5 mmol/L (3.5-5.1); SODIUM 139 mmol/L (136-145)
--- NOTE | 2019-01-22 06:33 | NUR ---
Visit made by the Spiritual Care Department Pastoral Visitor, Gordon Ellis. PV provided pastoral presence, hospitality, and supportive listening. Pastoral Visitor informed pt/family of the scope of Resort Desk Clerk Services and availability. TIM TURNER Photographic Spotter Spiritual Care Department O: [phone] Pager: [phone] ([phone] number calling from)
--- NOTE | 2019-01-22 07:02 | NUR ---
RECEIVED PATIENT RESTING IN BED NO S/S OF DISTRESS. BED LOW, WHEELS LOCKED, SIDE RAILS X2. CALL LIGHT IN REACH, FAMILY AT BEDSIDE WILL CONTINUE TO MONITOR PATIENT.
[2019-01-22] MEDS: BENAZEPRIL HCL 10 MG TAB PO SCH (07:57)
[2019-01-22] MEDS: LEVETIRACETAM 500 MG TAB PO SCH ×2 (07:57→20:03)
[2019-01-22] MEDS: CHOLECALCIFEROL 1,000 UNIT TAB PO SCH (09:00)
[2019-01-22] MEDS: AMLODIPINE BESYLATE 5 MG TAB PO SCH (09:00)
--- NOTE | 2019-01-22 11:13 | NUR ---
PATIENT LEFT TO RADIOLOGY AT THIS TIME
[2019-01-22] MEDS ORDERED: FENTANYL CITRATE/PF 100MCG/2 ML INJ ONE (11:32)
[2019-01-22] MEDS ORDERED: MIDAZOLAM HCL 2 MG/2 ML VIAL ONE (11:32)
[2019-01-22] MEDS ORDERED: LIDOCAINE HCL 1% LOCAL INJ 20 ML VIAL ONE (11:41)
--- NOTE | 2019-01-22 13:16 | Diagnostic Imaging Report ---
PROCEDURE: CT-guided left lung biopsy Procedural Personnel Attending physician(s): Mei Rubio MD Fellow physician(s): None Resident physician(s): None Advanced practice provider(s): None Pre-procedure diagnosis: Bilateral lung nodules Post-procedure diagnosis: Same Indication: Histopathologic diagnosis Previous biopsy of same target (QCDR): No Additional clinical history: None Complications: No immediate complications. IMPRESSION: CT-guided biopsy of left upper lobe lung nodule. Plan: Specimen(s) sent for evaluation. PROCEDURE SUMMARY: - Percutaneous CT-guided coaxial core needle and fine needle aspiration biopsy - Additional procedure(s): None PROCEDURE DETAILS: Pre-procedure Reference imaging for biopsy target: Chest CT of 01/19/2019 Consent: Informed consent for the procedure including risks, benefits and alternatives was obtained and time-out was performed prior to the procedure. Preparation: The site was prepared and draped using maximal sterile barrier technique including cutaneous antisepsis. Anesthesia/sedation Level of anesthesia/sedation: Moderate sedation (conscious sedation) Anesthesia/sedation administered by: Independent trained observer under attending supervision with continuous monitoring of the patient?s level of consciousness and physiologic status Total intra-service sedation time (minutes): 30 Imaging prior to biopsy The patient was positioned supine. Initial imaging was performed using noncontrast CT. Biopsy target: - Maximal diameter (cm): 1.5 - Location: Left upper lobe Other findings: None Biopsy Local anesthesia was administered. Under CT guidance, the biopsy needle was advanced to the target and biopsy was performed. Coaxial needle: 19 gauge Core needle biopsy device: [email or web address] 20-gauge core biopsy needle, 2 cm tray Core needle size: 20 gauge Number of core specimens: 3 Fine needle aspiration device: 22-gauge Chiba needle Fine needle size: 22 gauge Number of FNA specimens: 2 On-site biopsy touch preparation: Yes Additional sampling recommendations: None Preliminary assessment of sample adequacy: Adequate Needle removal The biopsy needle was removed and a sterile dressing was applied. Tract embolization: None Imaging following biopsy Immediate post-biopsy imaging was performed using noncontrast CT. Post-biopsy imaging findings: No pneumothorax. Contrast Contrast agent: None Contrast volume (mL): [address] dose length product (mGy-cm): 1772.8 Additional Details Additional description of procedure: None Equipment details: None Specimens removed: Biopsy samples as detailed above Estimated blood loss (mL): Less than 10 Standardized report: [id number] Attestation Signer name: Mei Rubio MD I attest that I was present for the entire procedure. I reviewed the stored images and agree with the report as written. Signed by: Mei Rubio MD on 01/22/2019 1:12 PM
--- NOTE | 2019-01-22 14:00 | Diagnostic Imaging Report ---
EXAMINATION: CHEST XRAY POST PROCEDURE INDICATION: Status post lung biopsy, assess for pneumothorax COMPARISON: Chest CT of 01/19/2019, CT-guided lung biopsy of 01/22/2019 FINDINGS: LINES/TUBES:EKG leads overlie the chest. LUNGS:The lungs are moderately inflated. Mild biapical pleural parenchymal thickening/scarring. Patchy airspace opacity at the lingula is likely related to post biopsy changes. 1.4 cm nodular opacity at the right midlung corresponds with known right middle lobe nodule seen on CT. The remaining known bilateral pulmonary nodules are beyond the resolution of this radiograph. PLEURA:No pleural effusion or pneumothorax. MEDIASTINUM:The cardiomediastinal silhouette appears unchanged in size and shape. Atherosclerotic calcifications of the thoracic aorta. BONES/SOFT TISSUES:No acute osseous injury. ABDOMEN:No free air under the diaphragm. IMPRESSION: No pneumothorax status post left lung biopsy. Signed by: Mei Rubio MD on 01/22/2019 1:57 PM
--- NOTE | 2019-01-22 14:52 | NUR ---
PATIENT BACK FROM RADIOLOGY. DRESSING INTACT LOWER LEFT CHEST. CALL LIGHT IN REACH. VS STABLE, WILL CONTINUE TO MONITOR PATIENT.
--- NOTE | 2019-01-22 16:21 | Diagnostic Imaging Report ---
EXAMINATION: CHEST XRAY POST PROCEDURE INDICATION: Status post lung biopsy, assess for pneumothorax COMPARISON: Chest radiograph of earlier the same day, Chest CT of 01/19/2019, CT-guided lung biopsy of 01/22/2019 FINDINGS: LINES/TUBES:EKG leads overlie the chest. LUNGS:The lungs are moderately inflated. Mild biapical pleural parenchymal thickening/scarring. Patchy airspace opacity at the lingula is likely related to post biopsy changes. Nodular opacities at the right upper lung and right midlung correspond with known right middle lobe and right upper lobe nodules seen on CT. The remaining known bilateral pulmonary nodules are beyond the resolution of this radiograph. PLEURA:No pleural effusion or pneumothorax. MEDIASTINUM:The cardiomediastinal silhouette appears unchanged in size and shape. Atherosclerotic calcifications of the thoracic aorta. BONES/SOFT TISSUES:No acute osseous injury. ABDOMEN:No free air under the diaphragm. IMPRESSION: No pneumothorax status post left lung biopsy. Signed by: Mei Rubio MD on 01/22/2019 4:18 PM
[2019-01-22] MEDS ORDERED: MORPHINE SULFATE 2 MG/ML SYR 1ML IV PRN (16:30)
[2019-01-22] MEDS ORDERED: MORPHINE SULFATE INJ 4 MG/ML INJ 1ML IV PRN (16:30)
--- NOTE | 2019-01-22 19:13 | NUR ---
Bedside rounding completed with EDEL Finch. Pt is resting comfortably in bed with daughter at bedside. Call light is in reach, will continue to monitor pt.
[2019-01-22] MEDS: HYDROCODONE/APAP 5MG-325MG TAB PO PRN (23:12)
[2019-01-23 04:00] VITALS: BP 111/54
--- NOTE | 2019-01-23 07:00 | NUR ---
RECEIVED PATIENT RESTING IN BED NO S/S OF DISTRESS. BED LOW, WHEELS LOCKED, SIDE RAILS X2. CALL LIGHT IN REACH WILL CONTINUE TO MONITOR PATIENT.
[2019-01-23 07:52] VITALS: BP 112/58
[2019-01-23] MEDS: CHOLECALCIFEROL 1,000 UNIT TAB PO SCH (07:55)
[2019-01-23] MEDS: LEVETIRACETAM 500 MG TAB PO SCH (07:55)
[2019-01-23] MEDS: BENAZEPRIL HCL 10 MG TAB PO SCH (07:55)
[2019-01-23] MEDS: AMLODIPINE BESYLATE 5 MG TAB PO SCH (07:55)
[2019-01-23] MEDS ORDERED: PANTOPRAZOLE SOD 40 MG TABEC PO SCH (09:00)
[2019-01-23] MEDS ORDERED: ONDANSETRON HCL 4 MG ORAL DISINTEGRATING TAB PO PRN (09:00)
[2019-01-23 09:18] VITALS: BP 112/58
--- NOTE | 2019-01-23 10:18 | Diagnostic Imaging Report ---
Chest, 1 view, 01/23/2019. History: Post lung biopsy. Comparison: 01/22/2019. Findings: The cardiomediastinal silhouette and pulmonary vasculature are within normal limits for a portable exam. Right apical pleural thickening and upper lobe nodule are again noted. Lingular opacity is unchanged. There is no evidence of pneumothorax. There are no acute osseous or soft tissue abnormalities. Impression: No acute abnormality. No significant change. Signed by: Han Bagley on 01/23/2019 10:14 AM
[2019-01-23] MEDS ORDERED: NORCO 5-325 TA1 EACH PO (10:20)
--- NOTE | 2019-01-23 10:40 | NUR ---
REMOVED PATIENTS IV. CATHETER TIP INTACT AND PRESSURE DRESSING APPLIED
--- NOTE | 2019-01-23 11:01 | NUR ---
PATIENT DISCHARGED FROM FACILITY. PATIENT GATHERED ALL PERSONAL BELONGINGS, DISCHARGE INSTRUCTIONS AND FOLLOW UP INFORMATION. LEFT UNIT IN WHEELCHAIR AND WENT HOME VIA PRIVATE AUTO. NO SIGNS OF DISTRESS WHEN LEAVING FACILITY.
[2019-01-23 12:08] VITALS: BP 109/53
[2019-01-23] MEDS ORDERED: WARFARIN SOD 2.5 MG TAB PO SCH (17:00)
--- NOTE | 2019-01-24 04:29 | Discharge Summary ---
ADMISSION DIAGNOSIS: Carcinoma of the colon. DISCHARGE DIAGNOSIS: Carcinoma of the colon. PRINCIPAL PROCEDURE: Laparoscopic-assisted right hemicolectomy. HISTORY OF PRESENT ILLNESS: The patient is a 78-year-old female, who had an abdominal pain, evaluated colonoscopy that revealed a mass in the cecum. HOSPITAL COURSE: The patient admitted to the hospital, underwent surgery same day as admission. She had laparoscopic-assisted right hemicolectomy. Postoperatively, the patient was stable. She was seen in consultation by Dr. Bryan. She was started on liquid diet. She tolerated without problem. Bowel function returned normal. She was maintained on Lovenox on postop period, but then she had a note of a mass in her lung on x-ray. CT of the chest also confirmed mass suggestive of metastasis and she had consultation by Pulmonary Medicine and then percutaneous biopsy of lung mass by Interventional Radiology. This was done on the day prior to admission. The results are pending at the time of discharge. She was discharged home on the 5th postop day. At time of discharge, she was tolerating diet. Bowel function was normal. Wounds were clean. DISCHARGE MEDICATIONS: Discharge medication was [place] and she will continue on same home medications that she took prior to admission. FOLLOWUP: She will follow up with Dr. Perry approximately 1 week after discharge. DISPOSITION: Sent home in satisfactory condition on a regular diet. MD MARCELINA Frey/LES /[id number]
== END 2019-01-23 11:10 | disposition home or self-care (01) | DRG 330 ==
LOC: OR 10:18 → PACU V 14:06 → MED/SURG 17:17
PROVIDERS: ADMIT Surgery; ATTEND Surgery
PROC: 0BBL3ZX Excision of Left Lung, Percutaneous Approach, Diagnostic (ICD-10-PCS; 2019-01-22)
PROC: 0DTF4ZZ Resection of Right Large Intestine, Percutaneous Endoscopic Approach (ICD-10-PCS; principal; 2019-01-23)
DX: C18.9 Malignant neoplasm of colon, unspecified (principal); C78.02 Secondary malignant neoplasm of left lung; C78.01 Secondary malignant neoplasm of right lung; Z86.718 Personal history of other venous thrombosis and embolism; Z86.73 Personal history of transient ischemic attack (TIA), and cerebral infarction without residual deficits; K21.9 Gastro-esophageal reflux disease without esophagitis; D64.9 Anemia, unspecified; E87.6 Hypokalemia; I10 Essential (primary) hypertension
CPT/HCPCS: 10009; 32405; 36415; 71045; 71046; 71260; 74470; 80048; 80053; 82378; 85025; 85610; 85730; 86850; 86900; 88172; 88173; 88305; 88307; 88309; 88342; 93005; 96360; 99152; 99153; J0694; J1100; J1650; J2001; J2250; J2270; J2405; J3010; Q9967

== ENCOUNTER → 2020-10-29 | Outpatient (CLI) | payer BC ==
[~2020-10-29] MED LIST changes: +IOPAMIDOL 370 MG/ML 200 ML INFUS..BTL INJ ONE; +NORCO 5-325 TA1 EACH PO; +SODIUM CHLORIDE 0.9% 50ML 50 ML ONE
== END ==
LOC: CT 15:57
PROVIDERS: ATTEND Internal Medicine
DX: C34.90 Malignant neoplasm of unspecified part of unspecified bronchus or lung (principal)
CPT/HCPCS: 71260; Q9967